=== PATIENT | female | born 1955 | race Caucasian/White ===

== ENCOUNTER 2020-11-08 14:06 | Emergency (ER) | payer MEDICAID, SELFPAY ==
[2020-11-08] VITALS (34 sets, daily range): BP systolic 129–162; BP diastolic 62–92; PULSE 57–93; RESP 8–38; TEMP 36.5; O2SAT 94–99
--- NOTE | 2020-11-08 14:00 | RT.EKG_ITS ---
APPROVED REPORT Exam: Resting ECG Patient Location: E HR:72 bpm ECG Measurements Heart Rate 72 AXIS OR 135 P 51 QRSd 97 QRS 59 QT 386 T 25 QTc 422 Conclusion Sinus rhythm...normal P axis, V-rate 60- 99 Atrial premature complex...SV complex w/ short R-R interval
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
[2020-11-08 14:57] LABS: Abs Immature Grans 0.01 10^3/uL (0.0-0.06); Absolute Basophil Count 0.04 10^3/uL (0.0-0.2); Absolute Lymphocyte Count 1.38 10^3/uL (1.2-3.4); Absolute Monocyte Count 0.43 10^3/uL (0.1-0.8); Basophils % 0.5; Eosinophils % 1.3; HCT 43.8 % (36.0-46.0); HGB 14.6 g/dL (11.2-15.7); Immature Grans % 0.1; Lymphocytes % 17.6; MCHC 33.3 % (32.0-36.0); MCV 86.9 fL (80-95); MPV 9.6 fL (8.0-11.0); Monocytes % 5.5; Nucleated RBC 0 %; Platelet Count 281 10^3/uL (130-400); RBC 5.04 10^6/uL (3.93-5.22); RDW 12.6 % (11.7-14.6); RDW-SD 39.9 fL; WBC 7.86 10^3/uL (4.4-10.8)
[2020-11-08 15:13] LABS: ALT 28 U/L (14-59); AST 16 U/L (15-37); Albumin 4.3 g/dL (3.4-5.0); Alkaline Phosphatase 71 U/L (46-116); Anion Gap 6.2 mmol/L (3-11); BUN 13 mg/dL (7-18); Bilirubin, Total 0.5 mg/dL (0.2-1.0); CO2 27.8 mmol/L (21.0-32.0); CREATININE 0.88 mg/dL (0.55-1.02); Calcium 9.2 mg/dL (8.5-10.1); Chloride 102 mmol/L (98-107); Glucose 112 mg/dL (74-106); Magnesium 2.1 mg/dL (1.8-2.4); Potassium 4.2 mmol/L (3.5-5.1); Sodium 136 mmol/L (136-145); Total Protein 7.8 g/dL (6.4-8.2)
[2020-11-08 15:31] LABS: Troponin I < 0.05 ng/mL (<0.06)
--- OUTSIDE RECORDS SUMMARY | 2020-11-08 15:43 | XMS_ITS ---
:1955 Author Organization [facility] Address [address] [place] [address] Care Team Providers Name Role Phone Kelsey Lamb Unavailable Unavailable PROBLEMS Type Condition ICD9-CM [id number] Onset Condition SNOMED Cod e Code Code Dates Status Problem History of thyroid Z85.850 Active 4 11747276 cancer Problem Depression F32.9 02 Aug, Active 72110672 (emotion) 2015 Problem Hyperlipidemia E78.5 Active 82474 004 Problem Stress N39.3 Active 51559518 incontinence in female Problem Hypothyroidism E03.9 Active 18975 008 Problem Urge incontinence N39.41 Active 87 179115 Problem Mammogram declined Z53.20 Active 7 02833162 Problem Pre-diabetes R73.09 Active 1878403 02 Problem Anxiety F41.9 Active 28754229 Problem Vitamin D E55.9 Active 46860982 deficiency Problem Ganglion cyst of M67.431 Active 308 [id number] wrist, right Problem Primary M17.11 Active 418781562 osteoarthritis of right knee Problem Calcific M75.31 Active 5717160574 97370 tendinitis of right shoulder Problem Obesity (BMI E66.9 Active 5882173 01 30-39.9) Problem Grief F43.21 Active Problem Colonoscopy Z53.29 Active 93592800 2501109 refused Problem GERD K21.9 Active 841599345 (gastroesophageal reflux disease) Problem Trigger middle M65.332 Active 88452 03 finger of left hand Problem Chronic F43.12 Active 39753103 post-traumatic stress disorder (PTSD) Problem Locking of right M23.91 Active 636 45715 knee Problem Adjustment F43.21 Active 33947513 disorder with depressed mood ALLERGIES Substance Reaction Event Type Date Status Sulfa rash Non Drug Allergy Sep, Active Pravastatin Sodium dizziness Drug Allergy Sep, Active scallops nausea Non Drug Allergy Sep, Active latex rash Non Drug Allergy Sep, Active Bactrim rash Drug Allergy Sep, Active ENCOUNTERS Encounter Location Date Diagnosis [facility] [address] Sep, [place] [address] [place] [facility] [address] [place] [address] Sep, Pre-diabetes R73.09 ; [place] [address] adult health check Z00.00 ; Vitamin D defici ency E55.9 and Hyperlipidemia E 78.5 [facility] [facility] Sep, Metatarsalgia of left foot [place], [place] M77.42 ; Pes karena nus of left [address] foot M21.42 and Bone lesion M89.9 [facility] [address] [place] [address] Sep, Depression ( emotion) F32.9 ; [place] [address] Pre-diabetes R73.09 ; Influenza vaccin ation administered at current visit Z23 ; Hypothyroi dism E03.9 and Vitamin D defici ency E55.9 [facility] [address] [place] [address] Sep, Chronic post -[place] [address] disorder (PTS D) F43.12 ; Disappearance an d of family member Z6 3.4 ; Adjustment disor alejandrina with depressed mood F 43.21 and Grief F43.21 [facility] [facility] Sep, Metatarsalgia of left foot [place] M77.42 ; Pes karena [place]us of left [address] foot M21.42 and Bone lesion M89.9 [facility] [address] [place] [address] Sep, Chronic post -[place] [address] disorder (PTS D) F43.12 ; Disappearance an d of family member Z6 3.4 ; Adjustment disor alejandrina with depressed mood F 43.21 and Grief F43.21 [facility] Aug, Primary oste oarthritis of both [place] first carpometac arpal joints [address] M18.0 [facility] [address] [place] [address] Aug, Chronic post -traumatic stress [place] disorder (PTSD) F43.12 ; [address] Disappearance an d of family member Z6 3.4 ; Adjustment disor alejandrina with depressed mood F 43.21 and Grief F43.21 [facility] Aug, [place] [address] [facility] Aug, Thumb pain, right M79.644 ; [place] Thumb pain, left M79.645 and [address] Primary osteoart hritis of both first carpometac arpal joints M18.0 [facility] [address] [place] [address] Aug, Thumb pain, left M79.645 ; [place] [address] Thumb pain, r ight M79.644 and Foot pain, left M79.672 [place] [facility] 17 Jul, 2020 [place] [address] [facility] [address] [place] [address] Jun, Chronic post -[place] [address] disorder (PTS D) F43.12 ; Disappearance an d of family member Z6 3.4 and Adjustment disor alejandrina with depressed mood F 43.21 [facility] Jun, Primary oste oarthritis of [place] right knee M17.1 1 [address]247 LPO-SPECIALTY TEAM [facility] Jun, [place] [address] [facility] Jun, Primary oste oarthritis of [place] right knee M17.[address] Jun, Depression ( emotion) F32.9 [place] [address] Grief at loss of child F43.21 [facility] [address] [place] [address] May, Chronic post -traumatic [place] [address] disorder (PTS D) F43.12 [facility] May, Locking of r ight knee M23.91 [place] [address] [facility] [address] [place] [address] May, Knee pain, r ight M25.561 [place] [address] Grief at loss of child F43.21 [place] [facility] May, [place] [address] [facility] Apr, Chronic post -traumatic stress [place], [place] disorder (PTSD) F43.12 [address] [facility] [address] [place] [address] March, Tongue pain K14.6 [place] [address] [facility] [address] [place] [address] March, Chronic post -traumatic stress [place] disorder (PTSD) F43.12 [address] [facility] [address] [place] [address] Feb, Chronic post -traumatic stress [place] disorder (PTSD) F43.12 11910 UNKNOWN 17 Feb, 2020 [facility] Feb, [place] [address] [facility] Jan, Orthopedic a ftercare Z47.89 [place] [address] [facility] Dec, Trigger fing er, left middle [place], [place] finger M65.332 [place] Orthopedic [address] aftercare Z47.89 [facility] 13 Dec, 2019 Orthopedic a ftercare Z47.89 [place] [address] ORTHOPEDIC OFFICE [facility] Dec, [place] [address] SURGERY [facility] Dec, [place] [address] SURGERY [facility] Dec, [place] [address] ORTHOPEDIC OFFICE [facility] Dec, Trigger fing er, left middle [place], [place] finger M65.332 a nd Pre-op 28106 evaluation Z01.8 18 [facility] Dec, Trigger midd le finger of left [place] hand M65.332 [address] [facility] NO 03 Dec, 2019 Pre-lisa betes R73.09 and OFFICE [place] Vitamin D defici ency E55.9 [address] [facility] [address] [place] [address] Nov, Well adult h ealth check Z00.00 [place] [address] ; Influenza v accination administered at current visit Z23 ; Hypothyroi dism E03.9 ; Vitamin D defici ency E55.9 ; Pre-diabetes R73 .09 ; Obesity (BMI 30-39.9) E6 6.9 ; Depression (emot ion) F32.9 ; Mammogram declin ed Z53.20 ; Colonoscopy refu sed Z53.29 ; Encounter for dr dee screening Z02.83 ; Alcohol screening Z13.89 ; Colon c ancer screening Z12.11 and Trigger middle finger of left hand M65.332 [place] [facility] Oct, [place] [address] [place] [facility] 11 Oct, 2019 Rash R21 [address] [place] [address] [facility] [address] [place] [address] Sep, Bronchitis J 40 [place] [address] [place] [facility] March, [place] [address] [facility] [address] [place] [address] Feb, Elevated [place] [address] (JEAN PIERRE) level R 76.8 [place] [facility] [address] [place] [address] Jan, [place] [address] [facility] [address] [place] [address] Jan, Hypothyroidi sm E03.9 [place] [address] [facility] [address] [place] [address] Jan, [place] [address] [facility] [address] [place] [address] Jan, Dermatitis L 30.9 ; [place] [address] antinuclear a ntibody (JEAN PIERRE) level R76.8 and Hypothyroidism E03.9 [facility] [address] [place] [address] Dec, Trigger midd [place] [address] hand M65.332 ; Elevated antinuclear anti body (JEAN PIERRE) level R76.8 and Ganglion cyst of wrist, right M67.431 [facility] OFF[facility] [address] [place] [address] Dec, Trigger midd le finger, [place] unspecified late rality M65.339 [address] [facility] [address] [place] [address] Dec, Colon cance r screening Z12.11 [place] ; Well adult [facility] check [address] Z00.00 ; Screeni ng for cervical cancer Z12.4 ; Obesity (BMI 30- 39.9) E66.9 ; Anxiety F41.9 ; History of thyroid cancer Z 85.850 ; Pain in joint, multip le sites M25.50 ; Depress ion (emotion) F32.9 ; Encounte r for drug screening Z02.83 ; Alcohol screening Z13.89 ; Colonoscopy refused Z53.29 ; Mammogram declined Z53.20 ; Hypothyroidism E 03.9 ; Pre-diabetes R73 .09 ; Hyperlipidemia E 78.5 ; Urge incontinence N39 .41 ; GERD (gastroesophagea l reflux disease) K21.9 ; Stress incontinence in female N39.3 and Calcific ten dinitis of right shoulder M 75.31 [facility] [address] [place] [address] [place] [address] [facility] [address] [place] [address] Nov, [place] [address] [facility] [address] [place] [address] Nov, Hypothyroidi sm E03.9 ; [place] [address] Pre-diabetes R73.09 and Pain in joint, multip le sites M25.50 [facility] [address] [place] [address] Nov, Hypothyroidi sm E03.9 [place] [address] Nov, Well adult h ealth check Z00.00 [place] [address] ; Screening f or cervical cancer Z12.4 ; O besity (BMI 30-39.9) E66.9 ; Anxiety F41.9 ; History of thy roid cancer Z85.850 ; Pain i n joint, multiple sites M 25.50 ; Colon cancer screening Z12.11 ; Depression (emot ion) F32.9 ; Encounter for dr price screening Z02.83 ; Alcohol screening Z13.89 ; Colonos copy refused Z53.29 ; Mammogr am declined Z53.20 ; Hypothy roidism E03.9 ; Pre-diabetes R 73.09 ; Hyperlipidemia E 78.5 ; Urge incontinence N39 .41 ; GERD (gastroesophagea l reflux disease) K21.9 ; Stress incontinence in female N39.3 and Calcific ten dinitis of right shoulder M 75.31 [facility] [address] [place] [address] Oct, Depression ( emotion) F32.9 ; [place] [address] Contact derma titis L25.9 and Trigger middle f beckie of left hand M65.332 [facility] Jun, Calcific ten dinitis of left [place] shoulder M75.32 and Ganglion [address] cyst M67.40 [facility] Jun, [place] [address] May, Hypothyroidi sm E03.9 ; [place] [address] Pre-diabetes R73.09 ; Hypercholesterol emia 272.0 and Hyperlipidemia E 78.5 [facility] [address] [place] [address] May, Hypothyroidi sm E03.9 [place] [address] Depression (e motion) F32.[address] March, Calcific [place] [address] shoulder M75. 32 ; Left shoulder pain M2 5.512 and Hypothyroidism E 03.9 LPO-SPECIALTY TEAM [facility] March, Left should er pain M25.512 and [place] Bursitis due to overuse M70.80 [address] [facility] [address] [place] [address] Jan, Hypothyroidi sm E03.9 [place] [address] [facility] [address] [place] [address] Jan, Hypothyroidi sm E03.9 [place] [address] Jan, Hypothyroid ism E03.9 ; [place] Pre-diabetes R73 .09 and [address] Hyperlipidemia E 78.5 [facility] [address] [place] [address] Jan, Pre-diabetes R73.09 [place] [address] Hyperlipidemi a E78.5 [facility] [address] [place] [address] Jan, Hypothyroidi sm E03.9 [place] [address] [place] [facility] [facility] [address] [place] [address] Jan, Hypothyroidi sm E03.9 ; [place] [address] Depression (e motion) F32.9 ; Pre-diabetes R73 .09 ; Other retirement (curre nt) drug therapy Z79.899 ; Contact dermatitis L25.9 and Heel pain M79.673 [place] [facility] [address] [place] [address] Nov, Hypothyroidi sm E03.9 ; [place] [address] Depression (e motion) F32.9 ; GERD (gastroesop hageal reflux disease) K21.9 ; Obesity (BMI 30-39.9) E66.9 ; Stress incontinence in female N39.3 ; Urge incontinenc e N39.41 ; History of thyro id cancer Z85.850 ; Hyperl ipidemia E78.5 ; Pre-diabetes R 73.09 ; Ganglion cyst M6 7.40 ; Calcific tendini tis of right shoulder M75.31 ; Colonoscopy refused Z53.29 ; Mammogram declined Z53.20 and Pap smear of cervix declin ed Z53.20 [facility] [address] [place] [address] Nov, [place] [address] [place] [facility] [address] [place] [address] Nov, [place] [address] [facility] [address] Oct, Ganglion cyst o f wrist, right [place], [place] M67.431 [address] [facility] [address] [place] [address] Sep, Pre-diabetes R73.09 [place] [address] Sep, Prediabetes R73.09 ; Well [place] adult health raghavendra ck Z00.00 ; [address] Pruritic conditi on L29.9 ; Screening for ce rvical cancer Z12.4 ; GERD (ga stroesophageal reflux disease) K21.9 ; Visit for screening ma mmogram Z12.31 ; Cervical smear refused Z53.20 ; Colon c ancer screening Z12.11 ; Colonoscopy refused Z53.29 a nd Mammogram declined Z53.20 [facility] [address] [place] [address] Sep, Ganglion cys t M67.40 ; [place] [address] (BMI 30-39.9) E66.9 and Right wrist pain M25.5 31 [place] [address] [place] [address] Sep, [place] [address] [place] [address] [place] [address] Sep, Hypothyroi dism E03.9 [place] [address] Jul, Depression ( emotion) F32.9 [place] [address] Hypothyroidis m E03.9 [facility] STAFF [facility] [place] [facility] May, Pruritic condi tion L29.9 [place] [address] [place] [facility] [address] [place] [address] May, Pruritic c ondition L29.9 [place] [address] Apr, Hypothyroidi sm E03.9 ; [place] [address] Depression (e motion) F32.9 and Hyperlipidemia E 78.5 ORTHOPED[facility] OFFICE [address] [place] [address] March, Ganglion cys t M67.40 ; Frozen [place] shoulder, right M75.01 ; [address] Calcific tendini tis of right shoulder M75.31 and Coccydynia M53.3 [place] [facility] [address] [place] [address] March, Prediabete s R73.09 [place] [address] March, Well adult h ealth check Z00.00 [place] [address] ; GERD (gastr oesophageal reflux disease) K21.9 ; Cervical smear r efused Z53.20 ; Colon cancer s creening Z12.11 ; Colonos copy refused Z53.29 ; Mammogr am declined Z53.20 ; Ganglio n cyst of wrist M67.439 ; Right shoulder pain M25.511 and Coccydynia M53.3 [facility] [address] [place] [address] March, Hypothyroid ism E03.9 ; [place] Hyperlipidemia E 78.5 and [address] Pre-diabetes R73 .09 [place] [facility] [facility] [address] [place] [address] Dec, [place] [address] [place] [facility] [facility] [address] [place] [address] Dec, Hypothyroidi sm E03.9 ; [place] [address] Hyperlipidemi a E78.5 and Pre-diabetes R73 .09 [place] [facility] [address] [place] [address] Nov, Hypothyroidi sm E03.9 ; [place] [address] Depression (e motion) F32.9 ; GERD (gastroesop hageal reflux disease) K21.9 ; Hyperlipidemia E 78.5 and Pre-diabetes R73 .09 [facility] [address] Nov, Pre-diabete s R73.09 ; [place] Hypothyroidism E 03.9 ; [address] Depression (emot ion) F32.9 ; GERD (gastroesop hageal reflux disease) K21.9 a nd Hyperlipidemia E 78.5 [place] [facility] [address] [place] [address] Sep, Hypothyroidi sm E03.9 [place] [address] Sep, HYPOTHYROID ISM 244.9 ; [place] Pre-diabetes R73 .09 and [address] Hyperglycemia, u nspecified R73.[address] Aug, [place] [address] Aug, Pre-diabetes R73.09 [place] [address] Aug, Hyperglycem ia, unspecified [place] R73.9 and HYPOTH YROIDISM 244.[address] Aug, HYPOTHYROIDI SM 244.9 [place] [address] Hyperglycemia , unspecified R73.[address] Aug, HYPOTHYROID ISM 244.9 ; [place] Hypothyroidism, unspecified [address] E03.9 ; Depressi on (emotion) F32.9 and Other retirement (current) drug t herapy Z79.[address] Aug, Hypothyroidi sm, [place] [address] E03.9 ; Need for influenza vaccination V04. 81 ; Depression (emot ion) F32.9 and Other retirement (current) drug therapy Z79.899 [place] [facility] [facility] [address] [place] [address] Apr, HYPOTHYROIDI SM 244.9 [place] [address] [place] [facility] [address] [place] [address] Apr, [place] [address] [facility] [place] [facility] [facility] Apr, HYPOTHYROID ISM 244.9 ; Lipoma [place], [place] 214.9 and Hyperc holesterolemia 17780 272.0 [place] [facility] [facility] [address] [place] [address] Apr, HYPOTHYROIDI SM 244.9 ; [place] [address] Depression di sorder NOS 311 ; Hyperlipidemia 2 72.4 ; -Cervical Smear refused V64.2 and -Mammogram r efused V64.2 LPO-SPECIALTY TEAM [facility] [place] [facility] Jan, Lipoma 214. 9 [place] [address] LPO-SPECIALTY TEAM [facility] [place] [facility] Jan, Lipoma 214. 9 [place] [address] zzLPO-PRIM and PSYCH [facility] [place] [facility] Jan, [place] [address] [place] [facility] [address] [place] [address] Jan, Depression d isorder NOS 311 ; [place] [address] HYPOTHYROIDIS M 244.9 and Lipoma 214.9 [place] [facility] [facility] [address] [place] [address] Dec, HYPOTHYROIDI SM 244.9 [place] [address] Hypercholeste rolemia 272.0 [facility] [place] [facility] Nov, Obesity (BM I 30-39.9) 278.00 ; [place] Depression disor alejandrina NOS 311 ; [address] GERD [Gastroesop hageal reflux disease] 530.81 ; HYPOTHYROIDISM 2 44.9 and LONG-TERM USE ME DS NEC V58.69 [place] [facility] [address] [place] [address] Nov, Depression d isorder NOS 311 ; [place] [address] GERD [Gastroe sophageal reflux disease] 530.81 ; HYPOTHYROIDISM 2 44.9 ; LONG-TERM USE ME DS NEC V58.69 and Obesity (BMI 30-39.9) 278.00 [place] [facility] [facility] [address] [place] [address] [place], [place] [address] [place] [facility] [facility] [address] [place] [address] [place], [place] [address] zzLPO-PRIM and PSYCH [facility] [place] [facility] Nov, [place] [address] ADMINISTRATION [facility] [place] [facility] Jul, [place] [address] [place] [facility] [facility] [address] [place] [address] Jul, HYPOTHYROIDI SM 244.9 ; [place] [address] depression, s patrick episode NOS 296.20 and ANXIE TY STATE NOS 300.00 [facility] Jul, HYPOTHYROID ISM 244.9 and Major [place] depression, [place] N[place] [address] 296.20 [facility] [address] [place] [address] Apr, Tick bite of back 911.4 [place] [address] [place] [facility] [facility] [address] [place] [address] Apr, Tick bite of back 911.4 [place] [address] -[facility] [place] [facility] Apr, [place] [address] [place] [facility] [place] [facility] Apr, [place]ICE [place] [address] [place] [address] [place] [address] March, Major depres alejandro, [place] [address] episode NOS 2 96.20 and HYPOTHYROIDISM 2 44.9 [facility] [address] [place] [address] Jan, Rib injury 8 48.3 [place] [address] 719.46 [place] [facility] [facility] [address] [place] [address] Jan, Rib injury 8 48.3 [place] [address] [place] [address] [place] [address] Dec, Major depres alejandro, [place] [address] episode NOS 2 96.20 LPO-SPECIALTY TEAM [facility] [place] [facility] Oct, [place] [address] zzLPO-PRIM and PSYCH [facility] [place] [facility] Oct, [place] [address] [place] [facility] [facility] [address] [place] [address] Sep, Major depres alejandro, [place] [address] episode NOS 2 96.20 and VACCIN FOR INFLUENZA V0 4.81 zzLPO-PRIM and PSYCH [facility] [place] [facility] Aug, [place] [address] [place] [facility] Jul, Major depr ession, single OFFICE [address] episode NOS 296. 20 ; Trapezius [place], [place] muscle spasm 728 .85 and GERD [address] [Gastroesophagea l reflux disease] 530.81 [place] [facility] [address] [place] [address] Jul, [place] [address] -[facility] [place] [facility] May, HYPOTHYROID ISM 244.9 [place] [address] [place] [facility] [address] [place] [address] May, Major depres alejandro, [place] [address] episode NOS 2 96.20 [place] [facility] [address] [place] [address] Apr, Major depres alejandro, [place] [address] episode NOS 2 96.20 [place] [facility] Apr, Lipoma of back 214.8 [address] [place] [address] [place] [facility] [address] [place] [address] Apr, HYPOTHYROIDI SM 244.9 [place] [address] [facility] [place] [facility] [facility] March, HYPOTHYROID ISM 244.9 [place] [address] [place] [facility] [address] [place] [address] March, Major depres alejandro, [place] [address] episode NOS 2 96.20 and ANXIETY STATE NOS 300.00 [place] [facility] March, Major depr ession, single OFFICE [address] episode NOS 296. 20 ; STRESS [place], [place] REACT, EMOTIONAL 308.0 and [address] ANXIETY STATE NO S 300.00 CASE MANAGEMENT [facility] [place] [facility] March, [place] [address] [place] [facility] [address] [place] [address] Nov, HYPOTHYROIDI SM 244.9 [place] [address] [facility] [place] Nov, Dizziness 7 80.4 ; GERD [place], [place] [Gastroesophagea l reflux 20568 disease] 530.81 ; HYPOTHYROIDISM 2 44.9 [address] Di[address] Nov, Dizziness 78 0.4 ; [place] [address] HYPOTHYROIDIS M 244.9 and Diarrhea 787.91 [facility] [address] [place] [address] Sep, Tendinitis NOS 726.90 and OFFICE [place], [place] Epicondylitis 72 6.32 [id number] [place] [address] Sep, [place] [address] [facility] [address] [place] [address] Jul, [place] [address] [facility] [address] [place] [address] Jun, GERD [[place]astro [place] [address] disease] 530. 81 and HYPOTHYROIDISM 2 44.[address] [place] [address] Jun, [place] [address] [facility] [address] [place] [address] Jun, HYPOTHYROID ISM 244.9 ; GERD [place] [Gastroesophagea l reflux 14562 disease] 530.81 and Atypical chest pain 786.[address] Jun, GERD [[place] [address] disease] 530. 81 ; HYPOTHYROIDISM 2 44.9 and Atypical chest p ain 786.59 [facility] [address] [facility] May, [place] [address] [facility] [address] [facility] May, [place] [address] [facility] [address] [facility] May, Atypical [address] pain 786.59 [place] [address] [facility] [address] [facility] [place] [facility] [facility] May, Atypical ch est pain 786.59 [place] [address] [facility] [address] [place] [address] March, Back pain 72 4.5 [place] [address] [facility] [address] [place] [address] March[place] [address] CASE MANAGEMENT [facility] [facility] March, Back pain with radiation 724.5 [place] [address] xxRADIOLOGY [address] [facility] March, [place] [address] [facility] [address] [place] [address] March, Back pain wi th radiation 724.[address] [place] [address] [facility] [address] [facility] [facility] March, HYPOTHYROI DISM 244.9 [place] [address] [facility] [address] [place] [address] March, [place] [address] [facility] [address] [facility] Jun, HEMATURIA NOS 599.70 and OFFICE [place] Hematuria, micro scopic 599.[id number] Jun, HEPATITIS V ACCINE V05.3 [place], [place] [id number] [place] [address] Jun, ROUTINE MED ICAL EXAM V70.0 [place], [place] [id number] [place] [address] Jun, ROUTINE MED ICAL EXAM V70.0 [place] [address] [facility] [address] [facility] Jun, EXAMINATIO N NOS V72.9 [place] [address] IMMUNIZATIONS Vaccine Route Administration Date Status Influenza FLUBLOK QUAD NONSTATE IM Intramuscular Oct 16, 2020 Administered Influenza FLUBLOK QUAD NONSTATE IM Intramuscular Dec 24, 2019 Administered zzInfluenza FLUZONE QUAD NONSTATE IM Intramuscular Aug 25, 2015 Administered 3yrs and up -Influenza FLUARIX STATE 19+yrs IM Intramuscular Oct 05, 2013 Administered Hep B >18yrs NONSTATE 11286 IM Intramuscular Jul 09, 2011 Adm inistered Tdap adacel or Boostrix NONSTATE IM Intramuscular Jul 04, 2011 Administered Adults Depo-medrol 80 IA Intra-Articular Jul 19, 2020 Administered Depo-medrol 80 IA Intra-Articular Jul 02, 2018 Administered [place] includes admin [id number] ID Intradermal Jul 04, 2011 Adm inistered SOCIAL HISTORY Qualifiers Date Never Smoker REASON FOR REFERRAL FUNCTIONAL STATUS PLAN OF CARE Activity Details Follow Up prn Reason:orthotic casting Future Appointment Provider Name:Valerie Bentley [facility], 2020-11-09 08:00:00 AM, [address] [place] [address], [id number], Future Appointment Provider Name:Lisa sainz, 2020-12-26 10:00:00 AM, [address] [place] [address], [id number], Future Test COMPMET [id number] Future Test HEMOGLOBIN A1C [id number] Future Test LIPID W/ CALCULATED LDL 2021 0324 Future Test VITAMIN D (25-HYDROXY) TOTAL [id number] Future Test FL Guidance/ Joint Injection and/or Aspiration 20200914 Future Test X Foot L 3V [id number] Future Test X Hand L 3V [id number] Future Test X Hand R 3V [id number] Future Test MR Joint Lower Ext R w/o (73 721) 49120230 Future Test X Knee R 4V [id number] Future Test OCCULT BLOOD ICT TRPL CARD ( FOBT) (blue card) [id number] Future Test X Hand L 3V [id number] Future Test X Hand R 3V [id number] Future Test X Shoulder L [id number] Future Test HEMOGLOBIN A1C 94307530 Future Test GLUCOSE FASTING [id number] Future Test X Shoulder R [id number] Future Test X Sacrum/Coccyx 20160329 Future Test Path:Excision of Lesion 2014 326 Future Test UA DIPSTICK ONLY-DIAGNOSTIC [id number] VITAL SIGNS Height 63 in 2020-10-16 Weight 206.8 lbs 2020-10-16 BMI 36.63 kg/m2 2020-10-16 Temperature 99 degrees Fahrenheit 2020-10-16 Heart Rate 78 /min 2020-10-16 Respiratory Rate 18 /min 2020-10-16 Oximetry 98 % 2020-10-16 Blood pressure systolic 150 mm Hg 2020-10-16 Blood pressure diastolic 90 mm Hg 2020-10-16 MEDICATIONS Medication Instructions Dosage Frequency Start End Duration Statu s Date Date Vitamin D3 125 Orally Once a 2 tablet 24h Ac tive MCG (5000 UT) day Acetaminophen 500 Orally every 6 2 capsule 6h Active MG hrs as needed LORazepam 0.5 mg orally once a 1 tab(s) 09 April, 15 days Active day prn anxiety 2012 Synthroid 125 mcg orally once a 1 tab(s) 24h Nov, days Active (0.125 mg) day 2018 Benadryl Allergy Orally Once a 1-2 tablet 24h Active 25 MG day at bedtime as needed DULoxetine HCl 60 Orally Once a 1 capsule Sep, day s Active MG day for 2019 depression Ibuprofen 200 mg orally every 6 1 tab(s) 6h Active hours PROCEDURES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 BENEFIT [id number] SELF PAY [address] SELF PAY self [place] [id number] [place] [id number] SELF PAY self [place] [id number] [place] [id number] INSURANCE CGI ATTN CGI self BER[place] [id number] EMPLOYEE PAIGE EMPLOYEE DAVI 97 BENEFITS [employer] [employer] 171 GROUP [facility] Y [facility] [address] MEDICAID EDS MEDICAID self B[place] [id number] [place] FED[place] DAVI YIMI [facility] [id number] SELF PAY [address] SELF PAY self [place] [id number] [place] [id number] INSURANCE OCCUPATION W[facility] ATTN OCCUPATION self [place] [id number] [facility] DAVI DANIEL 8 [facility] [address] SELF PAY self [place] [id number] [place] [id number] INS NHP-NH PO [address]OX NHP-NH self B[place] [id number] HEALTHY [address] HEALTHY DAVI [place] [address] MEDICAID XEROS MEDICAID self B[place] [id number] [place] CLAIMS OR [facility] SELF [address] SELF PAY self [place] [id number] [place] [id number] INS MEDICAID XEROS MEDICAID self B[place] [id number] [place] CLAIMS OR [facility] [phone] [facility] self BERLYNDA [id number] 1^MAIN DAVI [facility] [id number] MEDICAID EDS MEDICAID self B[place] [id number] [place] [facility] [id number] BLUE CROSS [address] BLUE CROSS self [place] [id number] [facility] DAVI 7 [facility] [address] SELF PAY self [place] [id number] [place] [address] CROSS NEW [phone] NEW self [place] [id number] [place] [address] [address] [place] DAVI [facility] [address] SELF PAY self [place] [id number] [place] [address] SELF PAY self [place] [id number] [place] [address] SELF PAY self [place] [id number] [place] [address] INSURANCE [facility] [phone] [facility] self BERLYNDA [id number] 1^MAIN DAVI [facility] [id number] MVP [address] MVP self [place] [id number] HEALTHCARE [address] [facility] [place] [id number] [address]ELF [address] SELF PAY self [place] [id number] [place] [address] SELF PAY self [place] [id number] [place] [address] SELF PAY self [place] [id number] [place] [address] INSURANCE NHP-NH [address] NHP-NH self B[place] [id number] HEALTHY 4060 HEALTHY DAVI [facility] [address] SELF PAY self [place] [id number] [place] [address] INS NEW [phone] NEW self [place] [id number] [place] [address] [address] [place] DAVI [facility]Y [facility] [address] [facility] MEDICAID XEROS MEDICAID self BERLYELSYA [id number] OR CLAIMS OR DAVI [facility] OR MEDICAL (GENERAL) HISTORY Type Description Date Medical History papillary thyroid cancer s/p thyroidecto my, declines f/u Medical History hypothyroidism Medical History anxiety-occasionally uses lorazepam Medical History depression Medical History GERD Medical History pre-diabetes Medical History Hepatitis A Medical History menopausal Medical History declines mammogram, colonoscopy Surgical History ex-lap for L ovarian cyst 1996 Surgical History thyroidectomy 07/02 Surgical History carpal tunnel surgery 1992 Surgical History Release left middle finger,trigger Shruthi ewing 01-03-2020 Hospitalization History childbirth Hospitalization History ovarian cyst 1996
[2020-11-08] MEDS: Omnipaque 350 MG/ML 100 ML BTL IJ (16:35)
[2020-11-08] MEDS: Normal Saline Flush 10 ML SYR IVP (16:36)
[2020-11-08] MEDS: Normal Saline - Diluent 50 ML VIAL IV (16:36)
--- NOTE | 2020-11-08 17:16 | DI.VRAD_ITS ---
PROCEDURE INFORMATION: Exam: CT Chest With Contrast; Diagnostic Exam date and time: 11/08/2020 2:29 PM Age: 65 years old Clinical indication: Other: Trauma, chest pain TECHNIQUE: Imaging protocol: Diagnostic computed tomography of the chest with intravenous contrast. Contrast material: OMNIPAQUE 350; Contrast volume: 100 ml; Contrast route: INTRAVENOUS (IV); COMPARISON: No relevant prior studies available. FINDINGS: Lungs: There is a 4 x 4 mm noncalcified posterolateral basilar left lower lobe nodule on image 448, series 6. There is also a 6 x 4 mm subpleural lateral basilar noncalcified right lower lobe nodule on image 400, series 6. The central airways are patent. There is no bronchiectasis or bronchiolectasis. There are scattered regions of minimal subsegmental atelectasis at the lung bases. There are few scattered regions of minimal tiny nodular branching airspace opacity suggesting minimal infectious small airways disease. Pleural space: No pneumothorax is identified. There are no pleural effusions. There is no hemothorax identified. Heart: There is dyiy-oj-piywvqls coronary artery calcification. Mediastinal space: There is a tiny sliding hiatal hernia. Aorta: There is mild atherosclerotic calcification of the thoracic aorta, without aneurysm formation. There is no evidence for aortic dissection. Lymph nodes: Unremarkable. No enlarged lymph nodes. Bones/joints: No displaced fractures are identified. There is multilevel mild degenerative change of the mid and lower thoracic spine. Soft tissues: Unremarkable. IMPRESSION: 1. No evidence for acute traumatic injury to the thorax. 2. Two small subcentimeter basilar pulmonary nodules, the larger measuring 6 x 4 mm, indeterminate. For patients at low risk (minimal or absent history of smoking and of other known risk factors), no routine follow-up is indicated. For patients at high risk (history of smoking or of other known risk factors), consider optional CT Chest at 12 months. (Reference: Latisha) REFERENCES: Latisha Denise, et al. Guidelines for Management of Incidental Pulmonary Nodules Detected on CT Images: From the Fleischner Society 2017. Radiology. 2017;284(1):228-243. PROCEDURE INFORMATION: Exam: CT Abdomen And Pelvis With Contrast Exam date and time: 11/08/2020 2:29 PM Age: 65 years old Clinical indication: Other: Trauma, chest pain TECHNIQUE: Imaging protocol: Computed tomography of the abdomen and pelvis with intravenous contrast. Contrast material: OMNIPAQUE 350; Contrast volume: 100 ml; Contrast route: INTRAVENOUS (IV); COMPARISON: No relevant prior studies available. FINDINGS: Liver: There are 2 tiny subcentimeter low-dense liver lesions, as seen on images 39 and 46, series 4, the larger measuring 5 mm. No liver laceration is identified. Gallbladder and bile ducts: Normal. No calcified stones. No ductal dilation. Pancreas: Normal. No ductal dilation. Spleen: The spleen is normal in size without evidence for laceration. Adrenal glands: The adrenal glands appear unremarkable, without evidence for hematoma or focal lesion. Kidneys and ureters: There is no evidence for renal laceration. No focal renal lesions are identified. There is no hydronephrosis or hydroureter. No urinary tract stones are identified. Stomach and bowel: There is no evidence for bowel inflammation or obstruction. There is mild sigmoid diverticulosis. Around axial images 93-95, series 4, findings suggest mild vascular engorgement of the sigmoid mesocolon with minimal fat stranding and possible mild wall thickening of the sigmoid colon in this region, as seen on image 95; cannot exclude mild acute diverticulitis in this region. There is a 9 mm linear metallic foreign body adjacent to the rectum on coronal image 80, series 7 which may represent a surgical clip. Appendix: No evidence of appendicitis. Intraperitoneal space: There is no evidence for free intraperitoneal air. No ascites is identified. No focal intra-abdominal or pelvic hematomas are identified. Vasculature: There is vzjs-tl-bqxhoozi atherosclerotic calcification of the abdominal aorta without aneurysm formation. Lymph nodes: Unremarkable. No enlarged lymph nodes. Urinary bladder: Unremarkable as visualized. Reproductive: Unremarkable as visualized. Bones/joints: No acute fractures are identified. Soft tissues: Unremarkable. IMPRESSION: 1. No evidence for acute traumatic injury within the abdomen or pelvis. 2. Sigmoid diverticulosis. Cannot exclude mild acute diverticulitis in this region, as described above. Recommend clinical correlation. 3. Two tiny sub cm low-dense liver lesions, indeterminate but likely benign. Dictated and Authenticated by: Montana Cloud MD. Ordering:AMAN Padilla MD
--- NOTE | 2020-11-10 11:29 | PDOC.ERCMPRO ---
- If Service Date Differs Date of service: 11/10/20 Time of Service: 11:29 Care Management Progress Note CM receives an email from Shelley Andrade, Framing Inspector of Diagnostic Imagining at [facility], advising that patient does not appear to have a PCP and is in need of further testing for pulmonary nodules seen on a CT. CM telephoned patient's home and spoke with her significant other who advises Pierregilmamarcelina keeleys Lisa Krueger PA-C, at the [facility] (tel. [phone]) and states she was seen by her PCP for a follow up appointment yesterday, 11/09/20.
== END 2020-11-08 18:25 | disposition home or self-care (01) ==
PROVIDERS: Registered Nurse Emergency; Emergency Provider Physician Assistant; PCP Physician Assistant Medical
DX: S29.8XXA Other specified injuries of thorax, initial encounter (principal); V43.52XA Car driver injured in collision with other type car in traffic accident, initial encounter; R91.1 Solitary pulmonary nodule; R93.2 Abnormal findings on diagnostic imaging of liver and biliary tract
CPT/HCPCS: 36415; 74177; 80053; 93005; 99284; 71260; 83735; 84484; 85025; 93010; J3490